=== PATIENT | male | born 1980 | race Caucasian/White ===

== ENCOUNTER → 2023-06-29 07:00 | Outpatient (CLI) | payer BC, SELFPAY ==
--- NOTE | ~2023-06-29 | MR_ITS ---
EXAMINATION: MR ankle LT wo con DATE: 06/29/2023 07:38 INDICATION: Chronic left ankle pain. TECHNIQUE: Magnetic resonance imaging (MRI) of the left ankle was performed without intravenous contr ast. Sequences included sagittal PD-weighted FS FSE, sagittal PD-weighted FSE, coronal PD-weighted FS FSE, coronal PD-weighted FSE, axial PD-weighted FS FSE, and axial PD-weighted FSE. COMPARISON: None. FINDINGS: Medial ankle ligaments: There are changes of sprain of superficial component of deltoid ligament characterized by thickening and increased signal intensity. The deep component of deltoid ligament is intact. Lateral ankle ligaments: There are changes of prior lateral ankle sprain characterized with thickening and increased signal in anterior talofibular ligament and increased signal in the calcaneofibular ligament. Posterior talofi bular ligament is normal. There are partial tears of anterior and posterior tibiofibular ligaments. T here is a partial tear of the tibiofibular syndesmosis. Tendons: The medial and anterior ankle tendons are normal. There is mild peroneus brevis tendinopathy. There i s mild Achilles tendinopathy. There is a skin marker posterior to the Achilles tendon. Plantar fascia: There is thickening and increased signal involving the central band of plantar fascia, consistent wit h fasciitis. There is an enthesophyte at the calcaneal attachment. 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 There is mild ankle joint chondrosis. Fluid: There is a small ankle joint effusion. There is a 7 x 3 x 9 mm ganglion cyst dorsal to navicular. IMPRESSION: 1. Mild Achilles tendinopathy. 2. Medial and lateral ankle sprains. 3. Plantar fasciitis. 4. Mild ankle joint chondrosis. Reviewed, dictated and finalized at location A.
== END ==
PROVIDERS: PCP Orthopaedic Surgery; Visit Provider Orthopaedic Surgery
DX: M25.572 Pain in left ankle and joints of left foot (principal); G89.29 Other chronic pain; M77.32 Calcaneal spur, left foot; M72.2 Plantar fascial fibromatosis
CPT/HCPCS: 73721